=== PATIENT | male | born 1995 | race Caucasian/White ===

== ENCOUNTER 2020-06-30 16:01 | Outpatient (CLI) | payer OTHER, SELFPAY ==
--- NOTE | ~2020-06-30 | XR_ITS ---
EXAMINATION: XR lumbar spine 2-3V DATE: 06/30/2020 16:37 INDICATION: Low back pain TECHNIQUE: Anteroposterior and lateral views of the lumbar spine, and cone-down lateral view of the l umbosacral junction were obtained. COMPARISON: None. FINDINGS: There is mild loss of intervertebral disc space height at L5-S1. Bone alignment is normal. Small degenerative osteophytes project from the anterior endplates of multiple vertebral bodies. Phle boliths are noted in the pelvis. The bowel gas pattern is normal. IMPRESSION: 1. Mild lumbar spondylosis without acute findings. Reviewed, dictated and finalized at location A.
== END 2020-06-30 16:02 | disposition home or self-care (01) ==
PROVIDERS: PCP Family Medicine; Visit Provider Nurse Practitioner Family
DX: M47.816 Spondylosis without myelopathy or radiculopathy, lumbar region (principal)
CPT/HCPCS: 72100

== ENCOUNTER 2023-03-30 09:14 | Emergency (ER) | payer OTHER, SELFPAY ==
--- NOTE | ~2023-03-30 | XR_ITS ---
EXAMINATION: XR chest 2V DATE: 03/30/2023 09:46 INDICATION: 8 days of cough and congestion TECHNIQUE: PA and lateral views of the chest were obtained. COMPARISON: None FINDINGS: Airspace opacities in the bilateral lower lung zones. Calcified nodule in the right midlung zone cons istent with old granulomatous disease. No pleural effusion or pneumothorax. Heart size is normal. Inc reased prominence of the bilateral emili suspicious for lymphadenopathy although differential would in clude margin of the central pulmonary arteries related to pulmonary arterial hypertension. Visualized bones and soft tissues are unremarkable. IMPRESSION: 1. Opacities in the bilateral lower lung zones concerning for pneumonia with differential including l ess likely pulmonary edema or atelectasis. 2. Suggestion of bilateral hilar lymphadenopathy which could be reactive, metastatic or due to lympho ma versus less likely enlargement of the central pulmonary arteries due to pulmonary arterial hyperte nsion. Recommend further evaluation with contrast-enhanced chest CT. Reviewed, dictated and finalized at location A. IMPRESSION: 1. Opacities in the bilateral lower lung zones concerning for pneumonia with di fferential including less likely pulmonary edema or atelectasis. 2. Suggestion of bilateral hilar lymphadenopathy which could be reactive, metas tatic or due to lymphoma versus less likely enlargement of the central pulmonar y arteries due to pulmonary arterial hypertension. Recommend further evaluation with contrast-enhanced chest CT.
[2023-03-30 09:26] VITALS: BP 121/70; PULSE 71; RESP 20; TEMP 36.4; O2SAT 96
--- NOTE | 2023-03-30 09:40 | ED.URI ---
HPI - URI/Sore Throat General Chief Complaint: Upper Respiratory Infection Stated Complaint: Congestion,Rt Shoulder Pain Time Seen by Provider: 03/30/23 09:31 Source: patient and RN notes reviewed Mode of arrival: ambulatory Limitations: no limitations History of Present Illness HPI Narrative: Patient presents today history of productive cough, nasal congestion, occasional shortness of breath. He has had 1 episode of post-tussive vomiting last night. Denies sore throat, fever, rhinorrhea, known sick contacts. He has been taking DayQuil and Motrin with some mild relief. Reports history of asthma as a child, but none as an adult. Patient smokes 1/3 packs per day. Patient also reports some intermittent right shoulder pain that started around the same time. Denies any injury or trauma. Denies numbness or tingling. Denies radiation of the pain. Related Data Allergies Allergy/AdvReac Type Severity Reaction Status Date / Time No Known Allergies Allergy Verified 03/30/23 09:25 Review of Systems Review of Systems: CONSTITUTIONAL: Denies body aches, fever, chills, or sweats. EYES: Denies visual changes, redness, or discharge. ENT: Denies rhinorrhea, sore throat, or otalgia.+ congestion CARDIOVASCULAR: Denies chest pain, palpitations, or edema. RESPIRATORY: + cough, shortness of breath GASTROINTESTINAL: Denies abdominal pain, nausea, or diarrhea.+ posttussive vomiting GENITOURINARY: Denies dysuria or hematuria. SKIN: Denies rash, itching, or wounds. MUSCULOSKELETAL: Denies back pain, joint pain, or myalgia. NEUROLOGIC: Denies headache, numbness, tingling, or weakness. PSYCH: Denies depression or anxiety. COUNTS INCLUDE 234 BEDS AT THE [facility] Past Medical History Medical History BMI 31.0-31.9,adult Social History Social History Social History: Patient smokes 1 cigarette a day and vapes the rest of the day Smoking status: Current every day smoker (cigs and vapes) Tobacco type: cigarettes and e-cigarettes/vaping Alcohol intake: never Comments At time of signature, I have reviewed and agree with nursing past medical, surgical, social and family history unless otherwise noted. Please see nursing chart for further information. There is no relevant family history pertinent to the presenting complaint Exam Narrative: GENERAL: Well-appearing, well-nourished, and in no acute distress. HEAD: Normocephalic, atraumatic. EYES: EOMI. No redness or drainage. Conjunctivae normal. ENT: Mucous membranes pink and moist. Nares clear. No rhinorrhea. TMs normal bilaterally. Throat normal. Uvula midline. NECK: Normal AROM. Supple. No lymphadenopathy. CHEST: No respiratory distress. Rhonchi throughout. Expiratory wheeze in the right lower lobe. Harsh cough noted. HEART: Regular rate and rhythm. No murmur appreciated. Normal peripheral pulses. EXTREMITIES: Right shoulder: Tenderness to the right lateral neck area/upper trapezius. No other tenderness to the entire shoulder. Pain does not increase with movement of the shoulder. Distal sensation intact. Capillary refill normal. Radial pulse normal. SKIN: Warm, dry, no rash. Capillary refill normal. Normal skin turgor. NEURO: No focal deficits. Alert and oriented x3. Gait steady. PSYCH: Normal affect. No signs of depression or anxiety. Course Course Level of Care: Express Care Visit Vital Signs Vital signs: Vital Signs Temperature 97.6 F 03/30/23 09:26 Pulse Rate 71 03/30/23 09:26 Respiratory Rate 20 03/30/23 09:26 Blood Pressure 121/70 03/30/23 09:26 Pulse Oximetry 96 03/30/23 09:26 Oxygen Delivery Room Air 03/30/23 09:26 Temperature 97.6 F 03/30/23 09:26 Pulse Rate 71 03/30/23 09:26 Respiratory Rate 20 03/30/23 09:26 Blood Pressure 121/70 03/30/23 09:26 Pulse Oximetry 96 03/30/23 09:26 Oxygen Delivery Room Air 03/30/23 09:
== END 2023-03-30 10:33 | disposition home or self-care (01) ==
PROVIDERS: Emergency Provider Nurse Practitioner
DX: J18.1 Lobar pneumonia, unspecified organism (principal); F17.210 Nicotine dependence, cigarettes, uncomplicated; F17.290 Nicotine dependence, other tobacco product, uncomplicated; Z86.16 Personal history of COVID-19
CPT/HCPCS: 71046; 99213; G0463